=== PATIENT | male | born 1975 ===

== ENCOUNTER → 2017-10-03 09:16 | Outpatient (CLI) | payer OTHER | END | disposition home or self-care (01) | LOC: LAB 09:16 | DX: E03.8 Other specified hypothyroidism (principal); E11.8 Type 2 diabetes mellitus with unspecified complications; I10 Essential (primary) hypertension; E78.2 Mixed hyperlipidemia; M81.0 Age-related osteoporosis without current pathological fracture ==

== ENCOUNTER 2017-10-04 07:45 | Outpatient (CLI) | payer OTHER | END 2017-10-04 07:52 | disposition home or self-care (01) | LOC: RAD 07:45 | DX: G45.8 Other transient cerebral ischemic attacks and related syndromes (principal); R55 Syncope and collapse; K21.9 Gastro-esophageal reflux disease without esophagitis; M12.9 Arthropathy, unspecified; M19.90 Unspecified osteoarthritis, unspecified site ==